=== PATIENT | male | born 1990 | race Caucasian/White ===

== ENCOUNTER 2022-05-09 11:30 | Emergency (ER) | payer OTHER ==
[~2022-05-09] VITALS: Ht 172.7 cm; Wt 84.5 kg
[2022-05-09 11:32] VITALS: BP 144/84
[2022-05-09] MEDS ORDERED: HYDR-3713 PO (12:54)
== END 2022-05-09 13:21 | disposition home or self-care (01) ==
LOC: M ED 11:30
DX: S82.832A Other fracture of upper and lower end of left fibula, initial encounter for closed fracture (principal); X50.1XXA Overexertion from prolonged static or awkward postures, initial encounter; Y92.89 Other specified places as the place of occurrence of the external cause; Y93.44 Activity, trampolining; F17.200 Nicotine dependence, unspecified, uncomplicated